=== PATIENT | female | born 1955 | race African-American/Black ===

== ENCOUNTER 2016-03-29 16:24 | Emergency (ER) | payer BC ==
[~2016-03-29] VITALS: Ht 160 cm; Wt 100.9 kg
[~2016-03-29 16:24] MED LIST: BACTRIM DS 8001 TAB PO; BENTYL 10MG10 MG/CAP PO; CHOLESTEROL FIG1 CAP PO; CHOLESTEROL MED; COLACE 100100 MG/CAP PO; COREG 25MG25 MG/TAB; COREG 25MG25 MG/TAB PO; COREG 3.123.125 MG/T PO; COREG12.5 MG PO; COREG3.125 MG PO; FLEXERIL 1010 MG/TAB PO; FORT1000TA PO; FORTAMET1000 MG PO; GLIPIZIDE10 M1 PO; GLIPIZIDE5 MG PO; GLUCOPHAGE1000 MG PO; GLUCOPHAGE500 MG/TAB PO; GLUCOTROL 5M5 MG/TAB; GLUCOTROL 5M5 MG/TAB PO; HCTZ; HCTZ 25MG TAB25 MG PO; HCTZ 25MG25 MG PO; HCTZ12.5TAB; HCTZ12.5TAB PO; LISINOPRIL PO; LORTAB 5/500 501 TAB PO; MAG-OX 400400 MG/TAB PO; METFORMIN1000 MG PO; MICROZIDE12.5 MG PO; NORCO 325 MG-51 TAB PO; NOVLOG SQ; PERCOCET 325 MG1 TA2 PO; PHENERGAN 25 TA25 MG PO; PRAVACHOL 20MG20 MG PO; PRINIVIL20 MG PO; PRINIVIL40 MG PO; PROMETHAZINE12.5 M5 PO; PROTONIX 40MG T40 MG PO; REGLAN 10MG10 MG/TAB PO; ROXICODONE 55 MG/TAB PO; SENOKOT S 50 MG1 TAB PO; TYLENOL 325MG325 MG PO; ULTRAM 50MG TAB50 MG PO; ZESTRIL 20MG TA20 MG PO; ZESTRIL40 MG PO; ZITHROMAX Z PA250 MG PO; ZOCOR 40MG40 MG PO; ZOCOR5 MG; ZOFRAN 4MG T4 MG/TAB PO; ZOFRAN4 M1 PO; [UNRECOGNIZED DRUG - OTHER]; [UNRECOGNIZED DRUG - REMARK]
[2016-03-29 17:16] LABS: CALCIUM 9.5 mg/dL (8.4-10.2); CREATININE, serum 1.01 mg/dL (0.52-1.25); POTASSIUM 3.7 mmol/L (3.4-5.0)
[2016-03-29 17:26] LABS: BASO % 0.6 % (0.0-2.0); EOS # 0.2 (0.0-0.7); EOS % 3.2 % (0-4.0); GRAN # 4.1 (1.4-6.5); GRAN % 66.3 % (42.2-75.2); LYMPH # 1.1 (1.2-3.4); LYMPH % 17.9 % (20.0-51.0); MEAN CELL VOLUME 96 fl (80.0-100.0); MEAN CORPUSCULAR HGB CONC 33 g/dl (33.0-37.0); MEAN PLATELET VOLUME 10.4 fl (7.4-10.4); MONO # 0.7 (0.1-0.6); MONO % 11.5 % (1.7-9.3); PLATELET COUNT 267 K/mm3 (130-400); RED BLOOD COUNT 3.68 M/mm3 (4.10-5.30); REDCELL DISTRIBUTION WIDTH-CV 13.3 % (11.5-14.5); WHITE BLOOD COUNT 6.2 K/mm3 (4.8-10.8)
[2016-03-29 17:44] LABS: HEMATOCRIT 35.4 % (37.0-47.0); HEMOGLOBIN 11.6 g/dl (12.5-16.0); MEAN CORPUSCULAR HEMOGLOBIN 32 pg (27.0-31.0)
[2016-03-29 17:47] LABS: INFLUENZA B NEGATIVE
[2016-03-29 18:22] VITALS: TEMP 101.3
[2016-03-29] MEDS ORDERED: TAMIFLU 75MG75 MG PO (18:24)
[2016-03-29] MEDS ORDERED: VENTOLIN0.09 MG IH (18:30)
[2016-03-29] MEDS ORDERED: ZITHROMAX Z PA250 MG PO (18:39)
[2016-03-29 18:53] VITALS: BP 143/80; PULSE 96
== END 2016-03-29 18:54 | disposition home or self-care (01) ==
LOC: COL.ER 16:24
PROVIDERS: Emergency Medicine
DX: J10.1 Influenza due to other identified influenza virus with other respiratory manifestations (principal); I10 Essential (primary) hypertension; E11.9 Type 2 diabetes mellitus without complications; Z79.84 Long term (current) use of oral hypoglycemic drugs
CPT/HCPCS: J7040

== ENCOUNTER 2016-09-11 20:44 | Emergency (ER) | payer BC ==
[~2016-09-11] VITALS: Ht 160 cm; Wt 102.3 kg
[~2016-09-11 20:44] MED LIST changes: +TAMIFLU 75MG75 MG PO; +VENTOLIN0.09 MG IH
[2016-09-11 20:47] VITALS: TEMP 98.1
[2016-09-11 21:24] LABS: BASO # 0.1 (0.0-0.2); BASO % 0.5 % (0.0-2.0); EOS # 0.2 (0.0-0.7); EOS % 2.2 % (0-4.0); GRAN # 4.2 (1.4-6.5); GRAN % 44.1 % (42.2-75.2); LYMPH # 4.3 (1.2-3.4); MEAN CELL VOLUME 95 fl (80.0-100.0); MEAN CORPUSCULAR HGB CONC 34 g/dl (33.0-37.0); MEAN PLATELET VOLUME 10.3 fl (7.4-10.4); MONO # 0.8 (0.1-0.6); PLATELET COUNT 257 K/mm3 (130-400); RED BLOOD COUNT 3.65 M/mm3 (4.10-5.30); REDCELL DISTRIBUTION WIDTH-CV 13.4 % (11.5-14.5); WHITE BLOOD COUNT 9.6 K/mm3 (4.8-10.8)
[2016-09-11 21:25] LABS: HEMATOCRIT 34.8 % (37.0-47.0); HEMOGLOBIN 11.7 g/dl (12.5-16.0); MEAN CORPUSCULAR HEMOGLOBIN 32 pg (27.0-31.0)
[2016-09-11 21:38] LABS: ADJUSTED CALCIUM 9.2 mg/dL (8.4-10.2); ALANINE AMINOTRANSFERASE 20 U/L (9-52); ALBUMIN 4.5 gm/dL (3.5-5.0); ALKALINE PHOSPHATASE 60 U/L (50-136); ANION GAP 14 mmol/L (7-16); BILIRUBIN,TOTAL 0.4 mg/dL (0.0-1.0); BLOOD UREA NITROGEN 20 mg/dL (7-17); CALCIUM 9.6 mg/dL (8.4-10.2); CARBON DIOXIDE 22 mmol/L (22-30); CHLORIDE 104 mmol/L (98-107); CREATINE KINASE 174 U/L (30-135); CREATININE, serum 0.99 mg/dL (0.52-1.25); GLUCOSE 118 mg/dL (74-106); LIPASE 211 U/L (23-300); MAGNESIUM 1.3 mg/dL (1.6-2.3); SODIUM 140 mmol/L (137-145); TOTAL PROTEIN 8.3 gm/dL (6.4-8.2)
[2016-09-11 21:54] LABS: PROLACTIN 8.8 ng/mL (3.0-18.6)
[2016-09-11 22:09] LABS: TROPONIN-I < 0.012 ng/mL (0.000-0.034)
[2016-09-11] MEDS ORDERED: ULTRAM 50MG TAB50 MG PO (22:19)
[2016-09-11 22:48] LABS: PH 5 (5-8); SQUAMOUS EPITHELIAL None Seen /hpf; URINE APPEARANCE Clear; URINE BACTERIA Rare /hpf; URINE BILIRUBIN Negative (NEGATIVE); URINE BLOOD 1+ (NEGATIVE); URINE COLOR Straw; URINE GLUCOSE Negative (NEGATIVE); URINE KETONE Negative (NEGATIVE); URINE RBC 0-2 /hpf; URINE UROBILINOGEN Negative (NEGATIVE); URINE WBC 0-2 /hpf
[2016-09-11 23:29] VITALS: BP 156/79; PULSE 79
== END 2016-09-11 23:30 | disposition home or self-care (01) ==
LOC: COL.ER 20:44
PROVIDERS: Emergency Medicine
DX: T67.5XXA Heat exhaustion, unspecified, initial encounter (principal); I10 Essential (primary) hypertension; E11.9 Type 2 diabetes mellitus without complications; K21.9 Gastro-esophageal reflux disease without esophagitis; Z79.84 Long term (current) use of oral hypoglycemic drugs; Z90.49 Acquired absence of other specified parts of digestive tract; Z87.59 Personal history of other complications of pregnancy, childbirth and the puerperium; X32.XXXA Exposure to sunlight, initial encounter
CPT/HCPCS: J1885; J7030

== ENCOUNTER 2016-10-31 18:13 | Emergency (ER) | payer BC ==
[~2016-10-31] VITALS: Ht 165.1 cm; Wt 101.4 kg
[2016-10-31 18:15] VITALS: TEMP 98.9
[2016-10-31 19:06] LABS: BASO % 0.4 % (0.0-2.0); EOS # 0.1 (0.0-0.7); EOS % 0.9 % (0-4.0); GRAN # 4.4 (1.4-6.5); GRAN % 55.3 % (42.2-75.2); LYMPH # 2.9 (1.2-3.4); LYMPH % 36.2 % (20.0-51.0); MEAN CELL VOLUME 95 fl (80.0-100.0); MEAN CORPUSCULAR HGB CONC 33 g/dl (33.0-37.0); MEAN PLATELET VOLUME 10.5 fl (7.4-10.4); MONO # 0.6 (0.1-0.6); MONO % 6.9 % (1.7-9.3); PLATELET COUNT 237 K/mm3 (130-400); RED BLOOD COUNT 3.61 M/mm3 (4.10-5.30); REDCELL DISTRIBUTION WIDTH-CV 12.7 % (11.5-14.5)
[2016-10-31 19:11] LABS: HEMATOCRIT 34.4 % (37.0-47.0); HEMOGLOBIN 11.5 g/dl (12.5-16.0); MEAN CORPUSCULAR HEMOGLOBIN 32 pg (27.0-31.0)
[2016-10-31 19:21] LABS: ANION GAP 9 mmol/L (7-16); BLOOD UREA NITROGEN 21 mg/dL (7-17); CALCIUM 9.4 mg/dL (8.4-10.2); CARBON DIOXIDE 25 mmol/L (22-30); CHLORIDE 103 mmol/L (98-107); CREATININE, serum 1.32 mg/dL (0.52-1.25); GLUCOSE 217 mg/dL (74-106); POTASSIUM 4.2 mmol/L (3.4-5.0); SODIUM 138 mmol/L (137-145)
[2016-10-31 19:24] LABS: C-REACTIVE PROTEIN < 0.5 mg/dL (0.0-0.9)
[2016-10-31 19:34] LABS: ERYTHROCYTE SEDIMENTATION RATE 14 mm/hr (0-30)
[2016-10-31 19:37] LABS: TROPONIN-I < 0.012 ng/mL (0.000-0.034)
[2016-10-31] MEDS ORDERED: MOBIC 7.5MG7.5 MG PO (19:57)
[2016-10-31] MEDS ORDERED: ZOFRAN ODT4 MG PO (19:57)
[2016-10-31 20:21] VITALS: BP 156/75; PULSE 84
== END 2016-10-31 20:22 | disposition home or self-care (01) ==
LOC: COL.ER 18:13
PROVIDERS: Emergency Medicine
DX: M25.512 Pain in left shoulder (principal); I10 Essential (primary) hypertension; E11.9 Type 2 diabetes mellitus without complications; Z79.84 Long term (current) use of oral hypoglycemic drugs; Z90.49 Acquired absence of other specified parts of digestive tract

== ENCOUNTER 2016-11-23 23:35 | Emergency (ER) | payer BC ==
[~2016-11-23] VITALS: Ht 160 cm; Wt 100.9 kg
[~2016-11-23 23:35] MED LIST changes: +MOBIC 7.5MG7.5 MG PO; +ZOFRAN ODT4 MG PO
[2016-11-23 23:46] VITALS: TEMP 98.3
[2016-11-24 00:33] LABS: BASO % 0.2 % (0.0-2.0); EOS % 0.2 % (0-4.0); GRAN # 10.2 (1.4-6.5); GRAN % 77.8 % (42.2-75.2); HEMOGLOBIN 12.4 g/dl (12.5-16.0); LYMPH # 2.1 (1.2-3.4); MEAN CELL VOLUME 95 fl (80.0-100.0); MEAN CORPUSCULAR HEMOGLOBIN 32 pg (27.0-31.0); MEAN CORPUSCULAR HGB CONC 34 g/dl (33.0-37.0); MEAN PLATELET VOLUME 10.3 fl (7.4-10.4); MONO # 0.7 (0.1-0.6); MONO % 5.3 % (1.7-9.3); PLATELET COUNT 269 K/mm3 (130-400); RED BLOOD COUNT 3.89 M/mm3 (4.10-5.30); REDCELL DISTRIBUTION WIDTH-CV 12.9 % (11.5-14.5); WHITE BLOOD COUNT 13.1 K/mm3 (4.8-10.8)
[2016-11-24 00:40] LABS: PROTHROMBIN TIME 11.5 SECONDS (9.7-12.8)
[2016-11-24 00:44] LABS: ADJUSTED CALCIUM 9.1 mg/dL (8.4-10.2); ALANINE AMINOTRANSFERASE 24 U/L (9-52); ALBUMIN 4.6 gm/dL (3.5-5.0); ALKALINE PHOSPHATASE 72 U/L (50-136); ANION GAP 13 mmol/L (7-16); BILIRUBIN,TOTAL 0.6 mg/dL (0.0-1.0); BLOOD UREA NITROGEN 22 mg/dL (7-17); CALCIUM 9.6 mg/dL (8.4-10.2); CARBON DIOXIDE 25 mmol/L (22-30); CHLORIDE 99 mmol/L (98-107); CREATINE KINASE 148 U/L (30-135); CREATININE, serum 1.01 mg/dL (0.52-1.25); GLUCOSE 250 mg/dL (74-106); POTASSIUM 4.4 mmol/L (3.4-5.0); SODIUM 138 mmol/L (137-145); TOTAL PROTEIN 8.6 gm/dL (6.4-8.2)
[2016-11-24 00:54] LABS: TROPONIN-I < 0.012 ng/mL (0.000-0.034)
[2016-11-24] MEDS ORDERED: FLEXERIL 1010 MG/TAB PO (01:38)
[2016-11-24] MEDS ORDERED: VOLTAREN 75 DR75 MG PO (01:38)
[2016-11-24] MEDS ORDERED: PREDNISONE20 MG PO (01:38)
[2016-11-24] MEDS ORDERED: TYLENOL W/COD1 UDTAB PO (01:38)
[2016-11-24 02:04] VITALS: BP 168/82; PULSE 75
== END 2016-11-24 02:06 | disposition home or self-care (01) ==
LOC: COL.ER 23:35
PROVIDERS: Emergency Medicine
DX: M25.512 Pain in left shoulder (principal); M25.522 Pain in left elbow; E11.9 Type 2 diabetes mellitus without complications; I10 Essential (primary) hypertension; Z79.84 Long term (current) use of oral hypoglycemic drugs; M19.90 Unspecified osteoarthritis, unspecified site
CPT/HCPCS: J1885; J2360; J2765; J2930; J3010; J7040

== ENCOUNTER 2017-06-10 14:52 | Emergency (ER) | payer BC ==
[~2017-06-10] VITALS: Ht 165.1 cm; Wt 100.0 kg
[~2017-06-10 14:52] MED LIST changes: +PREDNISONE20 MG PO; +TYLENOL W/COD1 UDTAB PO; +VOLTAREN 75 DR75 MG PO
[2017-06-10 15:58] VITALS: PULSE 84; TEMP 99.3
[2017-06-10 15:59] LABS: BASO % 0.4 % (0.0-2.0); EOS # 0.1 (0.0-0.7); EOS % 0.8 % (0-4.0); GRAN # 5.4 (1.4-6.5); GRAN % 59.3 % (42.2-75.2); LYMPH % 32.8 % (20.0-51.0); MEAN CELL VOLUME 94 fl (80.0-100.0); MEAN CORPUSCULAR HEMOGLOBIN 32 pg (27.0-31.0); MEAN CORPUSCULAR HGB CONC 34 g/dl (33.0-37.0); MONO # 0.6 (0.1-0.6); MONO % 6.4 % (1.7-9.3); PLATELET COUNT 262 K/mm3 (130-400); RED BLOOD COUNT 3.81 M/mm3 (4.10-5.30)
[2017-06-10 16:01] LABS: HEMATOCRIT 35.7 % (37.0-47.0)
[2017-06-10 16:13] LABS: ALANINE AMINOTRANSFERASE 27 U/L (9-52); ALBUMIN 4.3 gm/dL (3.5-5.0); ALKALINE PHOSPHATASE 59 U/L (50-136); ANION GAP 12 mmol/L (7-16); AST,SGOT 21 U/L (15-37); BILIRUBIN,TOTAL 0.3 mg/dL (0.0-1.0); BLOOD UREA NITROGEN 31 mg/dL (7-17); C-REACTIVE PROTEIN < 0.5 mg/dL (0.0-0.9); CALCIUM 9.5 mg/dL (8.4-10.2); CARBON DIOXIDE 20 mmol/L (22-30); CHLORIDE 103 mmol/L (98-107); GLUCOSE 158 mg/dL (74-106); LIPASE 321 U/L (23-300); POTASSIUM 4.7 mmol/L (3.4-5.0); SODIUM 136 mmol/L (137-145); TOTAL PROTEIN 8.8 gm/dL (6.4-8.2)
[2017-06-10 16:22] LABS: TROPONIN-I < 0.012 ng/mL (0.000-0.034)
[2017-06-10 16:49] LABS: COLLECTION METHOD CLEAN CATCH
[2017-06-10 17:00] LABS: MUCOUS Present /lpf; PH 5 (5-8); SQUAMOUS EPITHELIAL 0-2 /hpf; URINE APPEARANCE Clear; URINE BACTERIA None Seen /hpf; URINE BILIRUBIN Negative (NEGATIVE); URINE BLOOD Negative (NEGATIVE); URINE COLOR Straw; URINE GLUCOSE Negative (NEGATIVE); URINE KETONE Negative (NEGATIVE); URINE LEUKOCYTE ESTERASE Negative (NEGATIVE); URINE NITRATE Negative (NEGATIVE); URINE PROTEIN(semi-quant) Negative (NEGATIVE); URINE RBC 0-2 /hpf; URINE UROBILINOGEN Negative (NEGATIVE)
[2017-06-10] MEDS ORDERED: ZOFRAN 4MG T4 MG/TAB PO (17:44)
[2017-06-10 17:55] VITALS: BP 144/84
== END 2017-06-10 17:56 | disposition home or self-care (01) ==
LOC: COL.ER 14:52
PROVIDERS: Emergency Medicine
DX: N19 Unspecified kidney failure (principal); I10 Essential (primary) hypertension; E78.5 Hyperlipidemia, unspecified; E11.9 Type 2 diabetes mellitus without complications; Z90.49 Acquired absence of other specified parts of digestive tract; Z79.84 Long term (current) use of oral hypoglycemic drugs; Z79.52 Long term (current) use of systemic steroids
CPT/HCPCS: J2405; J7030

== ENCOUNTER 2017-09-08 10:36 | Emergency (ER) | payer BC ==
[~2017-09-08] VITALS: Ht 160 cm; Wt 100.0 kg
[2017-09-08 10:39] VITALS: TEMP 98.2
[2017-09-08] MEDS ORDERED: GLUCOTROL10 MG PO (10:58)
[2017-09-08] MEDS ORDERED: PRINIVIL40 MG PO (10:58)
[2017-09-08] MEDS ORDERED: GLUCOPHAGE500 MG/TAB PO (10:59)
[2017-09-08] MEDS ORDERED: PRAVACHOL 40MG40 MG PO (10:59)
[2017-09-08] MEDS ORDERED: HCTZ12.5TAB PO (10:59)
[2017-09-08 11:16] LABS: BASO % 0.4 % (0.0-2.0); EOS # 0.1 (0.0-0.7); EOS % 1.6 % (0-4.0); GRAN % 60.7 % (42.2-75.2); HEMOGLOBIN 10.9 g/dl (12.5-16.0); LYMPH # 2.5 (1.2-3.4); LYMPH % 30.5 % (20.0-51.0); MEAN CELL VOLUME 95 fl (80.0-100.0); MEAN CORPUSCULAR HEMOGLOBIN 32 pg (27.0-31.0); MEAN CORPUSCULAR HGB CONC 34 g/dl (33.0-37.0); MEAN PLATELET VOLUME 10.2 fl (7.4-10.4); MONO # 0.5 (0.1-0.6); MONO % 6.4 % (1.7-9.3); PLATELET COUNT 266 K/mm3 (130-400); REDCELL DISTRIBUTION WIDTH-CV 13.6 % (11.5-14.5)
[2017-09-08 11:23] LABS: HEMATOCRIT 32.4 % (37.0-47.0)
[2017-09-08 11:28] LABS: ALANINE AMINOTRANSFERASE 23 U/L (9-52); ALBUMIN 4.2 gm/dL (3.5-5.0); ALKALINE PHOSPHATASE 59 U/L (50-136); ANION GAP 12 mmol/L (7-16); AST,SGOT 22 U/L (15-37); BILIRUBIN,TOTAL 0.2 mg/dL (0.0-1.0); BLOOD UREA NITROGEN 20 mg/dL (7-17); CALCIUM 9.1 mg/dL (8.4-10.2); CARBON DIOXIDE 25 mmol/L (22-30); CHLORIDE 98 mmol/L (98-107); CREATININE, serum 1.03 mg/dL (0.52-1.25); GLUCOSE 267 mg/dL (74-106); LIPASE 448 U/L (23-300); MAGNESIUM 1.3 mg/dL (1.6-2.3); PHOSPHOROUS 3.4 mg/dL (2.5-4.5); POTASSIUM 4.3 mmol/L (3.4-5.0); SODIUM 135 mmol/L (137-145); TOTAL PROTEIN 7.7 gm/dL (6.4-8.2)
[2017-09-08 11:42] LABS: TROPONIN-I < 0.012 ng/mL (0.000-0.034)
[2017-09-08 12:08] LABS: COLLECTION METHOD CLEAN CATCH
[2017-09-08 12:18] LABS: PH 5 (5-8); SQUAMOUS EPITHELIAL 0-2 /hpf; URINE APPEARANCE Clear; URINE BACTERIA None Seen /hpf; URINE BILIRUBIN Negative (NEGATIVE); URINE BLOOD Negative (NEGATIVE); URINE COLOR Straw; URINE GLUCOSE 3+ (NEGATIVE); URINE KETONE Negative (NEGATIVE); URINE LEUKOCYTE ESTERASE Negative (NEGATIVE); URINE NITRATE Negative (NEGATIVE); URINE PROTEIN(semi-quant) Negative (NEGATIVE); URINE RBC 0-2 /hpf; URINE UROBILINOGEN Negative (NEGATIVE)
[2017-09-08] MEDS ORDERED: NORCO 325 MG-51 TAB PO (13:50)
[2017-09-08] MEDS ORDERED: FLEXERIL 1010 MG/TAB PO (13:50)
[2017-09-08] MEDS ORDERED: MAG OX 250 PO (13:50)
[2017-09-08] MEDS ORDERED: ZOFRAN ODT4 MG PO (14:09)
[2017-09-08 16:07] VITALS: BP 138/70; PULSE 89
[2017-09-09] MEDS ORDERED: COREG 25MG25 MG/TAB PO (09:38)
[2017-09-09] MEDS ORDERED: FLEXERIL 1010 MG/TAB PO (09:38)
[2017-09-09] MEDS ORDERED: PRINIVIL40 MG PO (09:39)
[2017-09-09] MEDS ORDERED: NORCO 325 MG-51 TAB PO (09:39)
[2017-09-09] MEDS ORDERED: MAG OX 250 PO (09:39)
[2017-09-09] MEDS ORDERED: ZOFRAN 4MG T4 MG/TAB PO (09:40)
[2017-09-09] MEDS ORDERED: PRAVACHOL 40MG40 MG PO (09:40)
[2017-09-09] MEDS ORDERED: GLUCOTROL10 MG PO (09:41)
[2017-09-09] MEDS ORDERED: HCTZ12.5TAB PO (09:41)
[2017-09-09] MEDS ORDERED: TYLENOL W/COD1 UDTAB PO (09:41)
[2017-09-09] MEDS ORDERED: VOLTAREN 75 DR75 MG PO (09:42)
[2017-09-09] MEDS ORDERED: MOBIC 7.5MG7.5 MG PO (09:42)
[2017-09-09] MEDS ORDERED: GLUCOPHAGE1000 MG PO (09:43)
[2017-09-09] MEDS ORDERED: PREDNISONE20 MG PO (09:44)
[2017-09-09] MEDS ORDERED: ULTRAM 50MG TAB50 MG PO (09:44)
== END 2017-09-08 16:12 | disposition home or self-care (01) ==
LOC: COL.ER 10:36
PROVIDERS: Emergency Medicine
DX: S16.1XXA Strain of muscle, fascia and tendon at neck level, initial encounter (principal); S39.012A Strain of muscle, fascia and tendon of lower back, initial encounter; S29.012A Strain of muscle and tendon of back wall of thorax, initial encounter; I10 Essential (primary) hypertension; E11.9 Type 2 diabetes mellitus without complications; E78.00 Pure hypercholesterolemia, unspecified; E83.42 Hypomagnesemia; Z79.84 Long term (current) use of oral hypoglycemic drugs; W18.09XA Striking against other object with subsequent fall, initial encounter
CPT/HCPCS: J3475

== ENCOUNTER 2017-09-09 09:08 | Day surgery (SDC) | payer BC ==
[~2017-09-09] VITALS: Ht 162.6 cm; Wt 103.0 kg
[~2017-09-09 09:08] MED LIST changes: +GLUCOTROL10 MG PO; +MAG OX 250 PO; +PRAVACHOL 40MG40 MG PO
[2017-09-09] MEDS ORDERED: FLEXERIL 1010 MG/TAB PO (09:38)
[2017-09-09] MEDS ORDERED: COREG 25MG25 MG/TAB PO (09:38)
[2017-09-09] MEDS ORDERED: MAG OX 250 PO (09:39)
[2017-09-09] MEDS ORDERED: PRINIVIL40 MG PO (09:39)
[2017-09-09] MEDS ORDERED: NORCO 325 MG-51 TAB PO (09:39)
[2017-09-09] MEDS ORDERED: ZOFRAN 4MG T4 MG/TAB PO (09:40)
[2017-09-09] MEDS ORDERED: PRAVACHOL 40MG40 MG PO (09:40)
[2017-09-09] MEDS ORDERED: HCTZ12.5TAB PO (09:41)
[2017-09-09] MEDS ORDERED: TYLENOL W/COD1 UDTAB PO (09:41)
[2017-09-09] MEDS ORDERED: GLUCOTROL10 MG PO (09:41)
[2017-09-09] MEDS ORDERED: MOBIC 7.5MG7.5 MG PO (09:42)
[2017-09-09] MEDS ORDERED: VOLTAREN 75 DR75 MG PO (09:42)
[2017-09-09] MEDS ORDERED: GLUCOPHAGE1000 MG PO (09:43)
[2017-09-09] MEDS ORDERED: PREDNISONE20 MG PO (09:44)
[2017-09-09] MEDS ORDERED: ULTRAM 50MG TAB50 MG PO (09:44)
[2017-09-09 09:45] VITALS: BP 145/73; PULSE 77; TEMP 98
[2017-09-09 11:45] VITALS: BP 134/64; PULSE 89; TEMP 97.1
[2017-09-09 12:00] VITALS: BP 137/75; PULSE 78
[2017-09-09 12:15] VITALS: BP 148/75; PULSE 76
[2017-09-09 12:30] VITALS: BP 141/87; PULSE 83
== END 2017-09-09 12:55 | disposition home or self-care (01) ==
LOC: SDCO 09:08
DX: K52.9 Noninfective gastroenteritis and colitis, unspecified (principal); K21.0 Gastro-esophageal reflux disease with esophagitis; K44.9 Diaphragmatic hernia without obstruction or gangrene; E11.9 Type 2 diabetes mellitus without complications; Z79.84 Long term (current) use of oral hypoglycemic drugs; I10 Essential (primary) hypertension; R06.02 Shortness of breath; D64.9 Anemia, unspecified; E11.22 Type 2 diabetes mellitus with diabetic chronic kidney disease; I12.9 Hypertensive chronic kidney disease with stage 1 through stage 4 chronic kidney disease, or unspecified chronic kidney disease; N18.9 Chronic kidney disease, unspecified; M54.42 Lumbago with sciatica, left side; G47.33 Obstructive sleep apnea (adult) (pediatric); R07.9 Chest pain, unspecified
CPT/HCPCS: J2704; J7030

== ENCOUNTER 2017-10-14 17:32 | Emergency (ER) | payer BC ==
[~2017-10-14] VITALS: Ht 162.6 cm; Wt 100.0 kg
[2017-10-14 17:36] VITALS: BP 173/82; TEMP 98.9
[2017-10-14 18:37] LABS: BASO % 0.3 % (0.0-2.0); EOS # 0.1 (0.0-0.7); EOS % 0.9 % (0-4.0); GRAN # 6.1 (1.4-6.5); GRAN % 62.2 % (42.2-75.2); HEMOGLOBIN 10.6 g/dl (12.5-16.0); LYMPH % 29.9 % (20.0-51.0); MEAN CELL VOLUME 96 fl (80.0-100.0); MEAN CORPUSCULAR HEMOGLOBIN 32 pg (27.0-31.0); MEAN CORPUSCULAR HGB CONC 33 g/dl (33.0-37.0); MEAN PLATELET VOLUME 10.5 fl (7.4-10.4); MONO # 0.6 (0.1-0.6); MONO % 6.2 % (1.7-9.3); PLATELET COUNT 245 K/mm3 (130-400); RED BLOOD COUNT 3.32 M/mm3 (4.10-5.30); REDCELL DISTRIBUTION WIDTH-CV 13.2 % (11.5-14.5)
[2017-10-14 18:47] LABS: ALANINE AMINOTRANSFERASE 22 U/L (9-52); ALBUMIN 3.8 gm/dL (3.5-5.0); ALKALINE PHOSPHATASE 55 U/L (50-136); ANION GAP 10 mmol/L (7-16); AST,SGOT 19 U/L (15-37); BILIRUBIN,TOTAL 0.2 mg/dL (0.0-1.0); BLOOD UREA NITROGEN 23 mg/dL (7-17); C-REACTIVE PROTEIN 0.6 mg/dL (0.0-0.9); CALCIUM 8.9 mg/dL (8.4-10.2); CARBON DIOXIDE 24 mmol/L (22-30); CHLORIDE 105 mmol/L (98-107); CREATININE, serum 1.14 mg/dL (0.52-1.25); GLUCOSE 159 mg/dL (74-106); MAGNESIUM 1.4 mg/dL (1.6-2.3); POTASSIUM 4.2 mmol/L (3.4-5.0); SODIUM 138 mmol/L (137-145); TOTAL PROTEIN 7.2 gm/dL (6.4-8.2)
[2017-10-14 18:57] LABS: TROPONIN-I < 0.012 ng/mL (0.000-0.034)
[2017-10-14 19:02] LABS: COLLECTION METHOD CLEAN CATCH
[2017-10-14 19:11] LABS: MUCOUS Present /lpf; PH 5 (5-8); SQUAMOUS EPITHELIAL 0-2 /hpf; URINE APPEARANCE Clear; URINE BACTERIA Rare /hpf; URINE BILIRUBIN Negative (NEGATIVE); URINE BLOOD Negative (NEGATIVE); URINE COLOR Yellow; URINE GLUCOSE Negative (NEGATIVE); URINE KETONE Negative (NEGATIVE); URINE LEUKOCYTE ESTERASE Negative (NEGATIVE); URINE NITRATE Negative (NEGATIVE); URINE PROTEIN(semi-quant) Negative (NEGATIVE); URINE RBC 0-2 /hpf; URINE UROBILINOGEN Negative (NEGATIVE)
[2017-10-14] MEDS ORDERED: ZOFRAN 4MG T4 MG/TAB PO (19:28)
[2017-10-14 19:38] VITALS: PULSE 78
== END 2017-10-14 19:38 | disposition home or self-care (01) ==
LOC: COL.ER 17:32
PROVIDERS: Emergency Medicine
DX: R11.10 Vomiting, unspecified (principal); E11.9 Type 2 diabetes mellitus without complications; I10 Essential (primary) hypertension; E78.00 Pure hypercholesterolemia, unspecified; Z79.84 Long term (current) use of oral hypoglycemic drugs
CPT/HCPCS: J2405; J7030

== ENCOUNTER 2018-01-12 18:24 | Emergency (ER) | payer SELFPAY ==
[~2018-01-12] VITALS: Ht 165.1 cm; Wt 90.9 kg
[2018-01-12 18:28] VITALS: BP 182/84; TEMP 99.8
[2018-01-12] MEDS ORDERED: ZITHROMAX Z PA250 MG PO (20:28)
[2018-01-12 21:32] VITALS: PULSE 92
== END 2018-01-12 21:32 | disposition home or self-care (01) ==
LOC: COL.ER 18:24
DX: J20.9 Acute bronchitis, unspecified (principal); E11.9 Type 2 diabetes mellitus without complications; I10 Essential (primary) hypertension; Z79.84 Long term (current) use of oral hypoglycemic drugs; Z90.49 Acquired absence of other specified parts of digestive tract; Z77.22 Contact with and (suspected) exposure to environmental tobacco smoke (acute) (chronic)

== ENCOUNTER 2018-08-21 17:43 | Emergency (ER) | payer BC ==
[~2018-08-21] VITALS: Ht 160 cm; Wt 100.0 kg
[~2018-08-21 17:43] MED LIST changes: +OMNICEF 300MG300 MG PO
[2018-08-21 17:48] VITALS: TEMP 98.7
[2018-08-21 18:25] LABS: BASO % 0.4 % (0.0-2.0); EOS # 0.1 (0.0-0.7); EOS % 1.1 % (0-4.0); GRAN # 5.3 (1.4-6.5); GRAN % 55.6 % (42.2-75.2); HEMOGLOBIN 11.4 g/dl (12.5-16.0); LYMPH # 3.5 (1.2-3.4); LYMPH % 36.1 % (20.0-51.0); MEAN CELL VOLUME 98 fl (80.0-100.0); MEAN CORPUSCULAR HEMOGLOBIN 32 pg (27.0-31.0); MEAN CORPUSCULAR HGB CONC 33 g/dl (33.0-37.0); MEAN PLATELET VOLUME 10.2 fl (7.4-10.4); MONO # 0.6 (0.1-0.6); MONO % 6.6 % (1.7-9.3); PLATELET COUNT 259 K/mm3 (130-400); RED BLOOD COUNT 3.56 M/mm3 (4.10-5.30)
[2018-08-21 18:45] LABS: ALANINE AMINOTRANSFERASE 17 U/L (9-52); ALBUMIN 4.1 gm/dL (3.5-5.0); ALKALINE PHOSPHATASE 69 U/L (50-136); ANION GAP 10 mmol/L (7-16); AST,SGOT 19 U/L (15-37); BILIRUBIN,TOTAL 0.2 mg/dL (0.0-1.0); BLOOD UREA NITROGEN 16 mg/dL (7-17); CARBON DIOXIDE 26 mmol/L (22-30); CHLORIDE 101 mmol/L (98-107); GLUCOSE 256 mg/dL (74-106); LIPASE 254 U/L (23-300); POTASSIUM 4.8 mmol/L (3.4-5.0); SODIUM 137 mmol/L (137-145); TOTAL PROTEIN 7.7 gm/dL (6.4-8.2)
[2018-08-21 19:00] LABS: TROPONIN-I < 0.012 ng/mL (0.000-0.035)
[2018-08-21 19:21] LABS: COLLECTION METHOD CLEAN CATCH
[2018-08-21 19:27] LABS: PH 6 (5-8); SQUAMOUS EPITHELIAL None Seen /hpf; URINE APPEARANCE Clear; URINE BACTERIA None Seen /hpf; URINE BILIRUBIN Negative (NEGATIVE); URINE BLOOD Negative (NEGATIVE); URINE COLOR Straw; URINE GLUCOSE 3+ (NEGATIVE); URINE KETONE Negative (NEGATIVE); URINE LEUKOCYTE ESTERASE Negative (NEGATIVE); URINE NITRATE Negative (NEGATIVE); URINE PROTEIN(semi-quant) Negative (NEGATIVE); URINE RBC 0-2 /hpf; URINE UROBILINOGEN Negative (NEGATIVE)
[2018-08-21 19:56] VITALS: BP 137/89; PULSE 77
== END 2018-08-21 19:57 | disposition home or self-care (01) ==
LOC: COL.ER 17:43
PROVIDERS: Emergency Medicine
DX: R07.81 Pleurodynia (principal); E11.9 Type 2 diabetes mellitus without complications; I10 Essential (primary) hypertension; I51.7 Cardiomegaly; K21.9 Gastro-esophageal reflux disease without esophagitis; Z90.49 Acquired absence of other specified parts of digestive tract; Z79.84 Long term (current) use of oral hypoglycemic drugs
CPT/HCPCS: J1885; J7030

== ENCOUNTER 2019-03-02 17:00 | Emergency (ER) | payer SELFPAY ==
[~2019-03-02] VITALS: Ht 160 cm; Wt 100.0 kg
[2019-03-02 17:33] VITALS: TEMP 97.4
[2019-03-02 18:33] LABS: COLLECTION METHOD CLEAN CATCH
[2019-03-02 18:35] LABS: BASO % 0.3 % (0.0-2.0); EOS # 0.1 (0.0-0.7); EOS % 0.8 % (0-4.0); GRAN # 5.5 (1.4-6.5); GRAN % 60.2 % (42.2-75.2); HEMOGLOBIN 12.4 g/dl (12.5-16.0); LYMPH # 2.8 (1.2-3.4); LYMPH % 31.3 % (20.0-51.0); MEAN CELL VOLUME 95 fl (80.0-100.0); MEAN CORPUSCULAR HEMOGLOBIN 32 pg (27.0-31.0); MEAN CORPUSCULAR HGB CONC 34 g/dl (33.0-37.0); MEAN PLATELET VOLUME 10.7 fl (7.4-10.4); MONO # 0.7 (0.1-0.6); MONO % 7.2 % (1.7-9.3); PLATELET COUNT 254 K/mm3 (130-400); RED BLOOD COUNT 3.84 M/mm3 (4.10-5.30); REDCELL DISTRIBUTION WIDTH-CV 12.5 % (11.5-14.5)
[2019-03-02 18:36] LABS: HEMATOCRIT 36.5 % (37.0-47.0)
[2019-03-02 18:41] LABS: MUCOUS Present /lpf; PH 5 (5-8); SQUAMOUS EPITHELIAL 0-2 /hpf; URINE APPEARANCE Clear; URINE BACTERIA Rare /hpf; URINE BILIRUBIN Negative (NEGATIVE); URINE BLOOD 1+ (NEGATIVE); URINE COLOR Straw; URINE GLUCOSE 3+ (NEGATIVE); URINE KETONE Negative (NEGATIVE); URINE LEUKOCYTE ESTERASE Negative (NEGATIVE); URINE NITRATE Negative (NEGATIVE); URINE PROTEIN(semi-quant) Negative (NEGATIVE); URINE RBC 0-2 /hpf; URINE UROBILINOGEN Negative (NEGATIVE)
[2019-03-02 18:50] LABS: ALANINE AMINOTRANSFERASE 16 U/L (9-52); ALBUMIN 4.6 gm/dL (3.5-5.0); ALKALINE PHOSPHATASE 67 U/L (50-136); ANION GAP 13 mmol/L (7-16); AST,SGOT 22 U/L (15-37); BILIRUBIN,TOTAL 0.2 mg/dL (0.0-1.0); BLOOD UREA NITROGEN 27 mg/dL (7-17); CALCIUM 9.6 mg/dL (8.4-10.2); CARBON DIOXIDE 24 mmol/L (22-30); CHLORIDE 99 mmol/L (98-107); GLUCOSE 344 mg/dL (74-106); LIPASE 228 U/L (23-300); POTASSIUM 4.2 mmol/L (3.4-5.0); SODIUM 136 mmol/L (137-145); TOTAL PROTEIN 8.2 gm/dL (6.4-8.2)
[2019-03-02 18:58] LABS: C-REACTIVE PROTEIN < 0.5 mg/dL (0.0-0.9)
[2019-03-02] MEDS ORDERED: GLUCOPHAGE1000 MG PO (20:08)
[2019-03-02 20:30] VITALS: BP 150/88; PULSE 78
[2019-03-02] MEDS ORDERED: GLUCOTROL10 MG PO (20:30)
== END 2019-03-02 20:35 | disposition home or self-care (01) ==
LOC: COL.ER 17:00
PROVIDERS: Physician Assistant
DX: E11.65 Type 2 diabetes mellitus with hyperglycemia (principal); E86.0 Dehydration; Z79.84 Long term (current) use of oral hypoglycemic drugs
CPT/HCPCS: J2405; J7030

== ENCOUNTER 2019-03-30 19:17 | Emergency (ER) | payer SELFPAY ==
[~2019-03-30] VITALS: Ht 160 cm; Wt 100.0 kg
[2019-03-30 19:18] VITALS: TEMP 98.4
[2019-03-30 19:53] LABS: BASO % 0.3 % (0.0-2.0); EOS % 0.5 % (0-4.0); GRAN # 4.8 (1.4-6.5); GRAN % 54.9 % (42.2-75.2); HEMATOCRIT 38.3 % (37.0-47.0); HEMOGLOBIN 12.6 g/dl (12.5-16.0); LYMPH # 3.2 (1.2-3.4); MEAN CELL VOLUME 96 fl (80.0-100.0); MEAN CORPUSCULAR HEMOGLOBIN 32 pg (27.0-31.0); MEAN CORPUSCULAR HGB CONC 33 g/dl (33.0-37.0); MEAN PLATELET VOLUME 10.8 fl (7.4-10.4); MONO # 0.6 (0.1-0.6); MONO % 6.6 % (1.7-9.3); PLATELET COUNT 282 K/mm3 (130-400); RED BLOOD COUNT 3.98 M/mm3 (4.10-5.30); REDCELL DISTRIBUTION WIDTH-CV 13.1 % (11.5-14.5)
[2019-03-30 19:57] LABS: ALANINE AMINOTRANSFERASE 25 U/L (9-52); ALBUMIN 4.7 gm/dL (3.5-5.0); ALKALINE PHOSPHATASE 68 U/L (50-136); ANION GAP 14 mmol/L (7-16); AST,SGOT 45 U/L (15-37); BILIRUBIN,TOTAL 0.3 mg/dL (0.0-1.0); BLOOD UREA NITROGEN 15 mg/dL (7-17); CALCIUM 9.6 mg/dL (8.4-10.2); CARBON DIOXIDE 22 mmol/L (22-30); CHLORIDE 107 mmol/L (98-107); CREATININE, serum 1.18 (0.52-1.25); GLUCOSE 290 mg/dL (74-106); LIPASE 163 U/L (23-300); POTASSIUM 3.6 mmol/L (3.4-5.0); SODIUM 142 mmol/L (137-145); TOTAL PROTEIN 8.4 gm/dL (6.4-8.2)
[2019-03-30 20:09] LABS: TROPONIN-I < 0.012 ng/mL (0.000-0.035)
[2019-03-30] MEDS ORDERED: PRAVACHOL 40MG40 MG PO (21:52)
[2019-03-30] MEDS ORDERED: GLUCOPHAGE1000 MG PO (21:52)
[2019-03-30] MEDS ORDERED: COREG 25MG25 MG/TAB PO (21:52)
[2019-03-30] MEDS ORDERED: PRINIVIL40 MG PO (21:52)
[2019-03-30] MEDS ORDERED: HCTZ12.5TAB PO (21:52)
[2019-03-30] MEDS ORDERED: GLUCOTROL XL10 MG PO (21:52)
[2019-03-30 22:02] VITALS: BP 177/92; PULSE 85
[2019-03-30] MEDS ORDERED: GLUCOPHAGE500 MG/TAB PO (22:18)
== END 2019-03-30 22:09 | disposition home or self-care (01) ==
LOC: COL.ER 19:17
PROVIDERS: Emergency Medicine
DX: E11.9 Type 2 diabetes mellitus without complications (principal); I10 Essential (primary) hypertension; R00.2 Palpitations; Z79.84 Long term (current) use of oral hypoglycemic drugs
CPT/HCPCS: J7030

== ENCOUNTER 2020-06-02 16:00 | Outpatient (RCR) | payer MEDICARE ==
[~2020-06-02 16:00] MED LIST changes: +GLUCOTROL XL10 MG PO
== END 2020-07-10 09:09 | disposition home or self-care (01) ==
LOC: WSC 16:00
DX: M25.511 Pain in right shoulder (principal)

== ENCOUNTER 2023-08-14 23:36 | Emergency (ER) | payer MEDICARE ==
[~2023-08-14] VITALS: Ht 165.1 cm; Wt 91.4 kg
[2023-08-14 23:56] VITALS: TEMP 98.8
[2023-08-15] MEDS ORDERED: Morphine 4 MG/ML VIAL IV ONE (02:15)
[2023-08-15] MEDS ORDERED: NS 1,000 ML IV ONE (02:15)
[2023-08-15] MEDS ORDERED: Ondansetron 4 MG/2 ML VIAL IV ONE (02:15)
[2023-08-15] MEDS ORDERED: Ketorolac 15 MG/ML VIAL IV ONE (02:30)
[2023-08-15 02:38] LABS: BASO # 0.1 K/mm3 (0.0-0.2); BASO % 0.5 % (0.0-2.0); EOS # 0.1 K/mm3 (0.0-0.7); GRAN # 5.7 K/mm3 (1.4-6.5); GRAN % 58.6 % (42.2-75.2); HEMOGLOBIN 11.1 g/dl (12.5-16.0); LYMPH # 3.2 K/mm3 (1.2-3.4); LYMPH % 32.7 % (20.0-51.0); MEAN CELL VOLUME 97 fl (80.0-100.0); MEAN CORPUSCULAR HEMOGLOBIN 32 pg (27-31); MEAN CORPUSCULAR HGB CONC 33 g/dl (33.0-37.0); MEAN PLATELET VOLUME 10.3 fl (7.4-10.4); MONO # 0.7 K/mm3 (0.1-0.6); PLATELET COUNT 258 K/mm3 (130-400); RED BLOOD COUNT 3.48 M/mm3 (4.10-5.30); REDCELL DISTRIBUTION WIDTH-CV 13.2 % (11.5-14.5)
[2023-08-15 02:39] LABS: HEMATOCRIT 33.8 % (37.0-47.0)
[2023-08-15 02:55] LABS: ALBUMIN 3.8 g/dL (3.4-4.8); BILIRUBIN,TOTAL 0.3 mg/dL (0.2-1.2); CALCIUM 9.8 mg/dL (8.4-10.2); CREATININE, serum 2.14 mg/dL (0.57-1.11); POTASSIUM 4.2 mEq/L (3.5-4.5); TOTAL PROTEIN 7.9 g/dl (6.2-8.1)
[2023-08-15 05:25] VITALS: BP 132/60; PULSE 77
== END 2023-08-15 05:25 | disposition home or self-care (01) ==
LOC: COL.ER 23:36
PROVIDERS: Personal Emergency Response Attendant
DX: N28.9 Disorder of kidney and ureter, unspecified (principal); E86.0 Dehydration; Z90.49 Acquired absence of other specified parts of digestive tract
CPT/HCPCS: J1885; J2405; J7030

== ENCOUNTER → 2023-10-19 | Outpatient (CLI) | payer MEDICARE | LOC: MC.RAD 13:17 | DX: Z12.31 Encounter for screening mammogram for malignant neoplasm of breast (principal) ==